=== PATIENT | female | born 1990 | race Caucasian/White ===

== ENCOUNTER 2020-03-29 23:27 | Emergency (ER) | payer SELFPAY ==
[~2020-03-29] VITALS: Ht 160 cm; Wt 109.0 kg
[2020-03-30] VITALS: BP 141/99
== END 2020-03-30 01:00 | disposition home or self-care (01) ==
LOC: ER 23:27
DX: Z20.822 Contact with and (suspected) exposure to COVID-19 (principal); R03.0 Elevated blood-pressure reading, without diagnosis of hypertension; Z86.16 Personal history of COVID-19
CPT/HCPCS: 87635; 99281; C9803

== ENCOUNTER 2020-04-05 20:16 | Emergency (ER) | payer SELFPAY ==
[~2020-04-05] VITALS: Ht 160 cm; Wt 109.0 kg
[2020-04-05] MEDS ORDERED: ACETAMINOPHEN 325MG TABLET PO ONE (20:45)
[2020-04-05] MEDS ORDERED: ALBUTEROL 6.7GM HFA INHALER ORI ONE (22:00)
[2020-04-05] MEDS ORDERED: AZITHROMYCIN 500 MG TABLET PO SCH (22:00)
[2020-04-05] MEDS ORDERED: ALBU6.7H9 INH (22:03)
[2020-04-05] MEDS ORDERED: MED4 MT (22:03)
[2020-04-05] MEDS ORDERED: AZIT250T12 MT (22:03)
[2020-04-05 22:39] VITALS: BP 141/86
== END 2020-04-05 22:40 | disposition home or self-care (01) ==
LOC: ER 20:16
DX: J18.9 Pneumonia, unspecified organism (principal); Z20.822 Contact with and (suspected) exposure to COVID-19; Z79.899 Other long term (current) drug therapy
CPT/HCPCS: 71045; 87804; 99283; C9803; U0003; Z7610

== ENCOUNTER 2020-05-18 12:30 | Emergency (ER) | payer MEDICAID ==
[~2020-05-18] VITALS: Ht 160 cm; Wt 108.0 kg
[~2020-05-18 12:30] MED LIST: ALBU6.7H9 INH; AZIT250T12 MT; MED4 MT
[2020-05-18 12:43] VITALS: BP 157/98
== END 2020-05-18 13:24 | disposition home or self-care (01) ==
LOC: ER 12:57
DX: Z76.0 Encounter for issue of repeat prescription (principal); F33.9 Major depressive disorder, recurrent, unspecified; R03.0 Elevated blood-pressure reading, without diagnosis of hypertension
CPT/HCPCS: 99283